=== PATIENT | male | born 1985 | race Caucasian/White ===

== ENCOUNTER 2019-06-05 23:17 | Inpatient (IN) | payer BC, SELFPAY ==
[2019-06-05 23:45] LABS: Hemoglobin 17.3 g/dL (14.0-18.0); Mean Corpuscular HGB CONC 33.5 g/dL (32.0-36.0); Mean Corpuscular Hemoglobin 33.7 pg (27.0-31.0); Mean Platelet Volume 8.2 fL (7.4-10.4); Platelet Count 343 thou/uL (130-400); RBC Distribution Width 13.5 % (11.5-14.5); Red Blood Cell (RBC) Count 5.12 mill/uL (4.70-6.10); White Blood Cell (WBC) Count 9.7 thou/uL (4.8-10.8)
[2019-06-05 23:56] LABS: ALT (SGPT) 843 U/L (8-55); AST (SGOT) 1174 U/L (5-34); Albumin 3.1 g/dL (3.5-5.0); Alkaline Phosphatase 409 U/L (40-150); Anion Gap 21 mmol/L (10-20); BUN (Urea Nitrogen) 27 mg/dL (8.9-20.6); Bilirubin, Total 2.5 mg/dL (0.2-1.2); Calc. Creatinine Clearance 0 mL/min (70-130); Carbon Dioxide 21 mmol/L (22-29); Chloride 94 mmol/L (98-107); Estimated GFR-MDRD 72; Globulin 3.2 g/dL (2.4-3.5); Glucose 61 mg/dL (70-105); Potassium 4.1 mmol/L (3.5-5.1); Protein, Total 6.3 g/dL (6.0-8.3); Sodium 132 mmol/L (136-145)
[2019-06-06 00:05] LABS: Calcium 12.6 mg/dL (7.8-10.44)
[2019-06-06 00:06] LABS: Band 6 % (5-11); Lymphocytes 9 % (21-51); MDiff Complete? YES; Monocytes 7 % (0-10); Neutrophil 76 % (42-75); Nucleated RBC 6 % (0); Reactive Lymphocytes 2 % (0-10)
[2019-06-06] MEDS ORDERED: Dextrose 50% Abboject 50 ML SYRINGE ONE (00:20)
[2019-06-06 00:27] LABS: Acetaminophen Less than 6.0 mcg/mL (10.0-30.0); Alcohol 18 mg/dL (Less than 10); Salicylate Less than 8.0 mg/dL (15.0-30.0)
[2019-06-06] MEDS ORDERED: Morphine 4 MG/ML VIAL ONE ×2 (00:31→02:50)
[2019-06-06 00:56] LABS: INR-International Normal Ratio 1.4; PTT 26.3 SEC (22.9-36.1); Prothrombin Time 16.7 SEC (12.0-14.7)
[2019-06-06 01:44] LABS: HBSAg Index 0.18 S/CO (0-0.99); Hep B Surf Ag Non-Reactive S/CO (NonReactive); Hep C IgG Ab Non-Reactive (NonReactive); Hep C Index 0.04 S/CO (0-0.79)
[2019-06-06 01:46] LABS: Hep A IgM AB Non-Reactive (NonReactive); Hep A IgM S/CO 0.11 S/CO (0-0.79)
[2019-06-06 01:47] LABS: HBCM Index 0.07 S/CO (0-0.79); Hepatitis B Core IgM Abs Non-Reactive (NonReactive)
[2019-06-06] MEDS ORDERED: Dextrose 50% Abboject 50 ML SYRINGE SLOW IVP PRN (04:19)
[2019-06-06] MEDS ORDERED: Dextrose 5% in Water 1,000 ML IV PRN (04:19)
[2019-06-06] MEDS ORDERED: Promethazine HCl 25 MG/ML VIAL IM PRN (04:19)
[2019-06-06] MEDS ORDERED: traMADol HCl 50 MG TAB PO PRN ×3 (04:23→22:57)
[2019-06-06] MEDS ORDERED: Sodium Chloride 0.9% 1,000 ML IV SCH (04:30)
[2019-06-06 05:38] VITALS: BMI 28.0
[2019-06-06] MEDS: Morphine 2 MG/ML SYRINGE SLOW IVP PRN ×5 (05:53→20:33)
[2019-06-06] MEDS: Dextrose 10% in Water 1,000 ML IV SCH ×2 (05:54→13:55)
[2019-06-06] MEDS: Ondansetron PF 4 MG/2 ML Vial IVP PRN ×2 (05:54→18:17)
--- NOTE | 2019-06-06 06:11 | HP ---
TRAUMA SURGEON: Dr. Hu. CONSULTING PHYSICIAN: Dr. Sweeney. HISTORY OF PRESENT ILLNESS: The patient is a 34-year-old male, who presented to the emergency department complaining of body aches for 7 weeks, sweats for 1 week, and right upper quadrant/epigastric abdominal pain as well as anorexia and fatigue. The patient was worked up by the emergency room physician and was found to have transaminitis, hypercalcemia, hepatomegaly, and enlarged liver with suspicion for possible metastasis. The patient also received a CT scan of the head, which demonstrated an acute right frontal subdural hematoma. The patient has no known history of trauma. He does report that he has been chair bound for almost a week. The patient has a history of leukemia and has been in remission for the past 10 years. Initially, Dr. Velasco tried to admit the patient to the Hospital Medicine Service, who reported that they felt it was more appropriate to admit the patient to Trauma due to the subdural hematoma. Upon my evaluation, the patient had received 2 L of normal saline as well as one amp of glucose for a blood glucose level of 61 on arrival. He was mildly tachycardic but hemodynamically stable. He was mildly diaphoretic and pale. He reported that he was feeling better after receiving care in the emergency department, but was still extremely fatigued. He does not recall any traumatic events. There are no signs of trauma on his body. He does have two small bumps on his scalp, which he reports are nontender. He does not remember when or how he got those bumps. The patient was admitted to the [facility] for close neurological assessment for his traumatic brain injury. He was started on D10 in the emergency department because his glucose dropped back down to 61 after one amp of D50 and meal. Subsequently, we will continue the glucose and watch his serum glucose levels very closely. REVIEW OF SYSTEMS: All 10-point review of systems negative except as indicated above. PAST MEDICAL HISTORY: Leukemia, in remission for 10 years. PAST SURGICAL HISTORY: Placement and removal of MediPort in the chest wall as well as a right knee surgery. 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 He reports chewing tobacco. He drinks alcohol very rarely. Reports a previous history of opioid abuse, when he was receiving treatment for chemotherapy. He also reports using THC, last use was about 3 to 4 days ago. MEDICATION: Effexor 300 mg daily. ALLERGIES: NO KNOWN DRUG ALLERGIES. PHYSICAL EXAMINATION: VITAL SIGNS: Temperature 98.0, pulse 105, respirations 18, oxygen saturation 96% on room air, and blood pressure 127/94. PRIMARY SURVEY: Airway intact. Adequate breath sounds bilaterally. 2+ pulses in the bilateral radials, femorals, and DPs. GCS is 15. Gross motor and sensation are intact. No lacerations, bruising, or external bleeding. SECONDARY SURVEY: HEAD: Normocephalic and atraumatic. No gross palpable skull deformities or tenderness. There are two small bumps on the top of his head, which are nontender with no signs of ecchymosis. EYES: Pupils 3 to 2, equal, round, reactive to light bilaterally. ENT: No hemotympanum. No epistaxis. No septal hematoma. Midface stable to manipulation. No blood in the oropharynx. Dentition is intact. C-SPINE: No step-offs, deformities, or tenderness. C-collar not in place. CHEST: Nontender. No crepitus. No abrasions or ecchymosis. Equal chest movement. ABDOMEN: Soft, mildly tender in the epigastric region, nondistended. His right upper quadrant is slightly more firm and is likely due to his hepatomegaly. PELVIS: Stable to manipulation. Nontender. No abrasions or ecchymosis. RECTAL: Deferred. GENITOURINARY: Deferred. EXTREMITIES: No gross palpable deformities. No abrasions or ecchymosis noted. 2+ pulses in bilateral radials, femorals, and DPs. He does have small petechiae on his upper extremities and the patient reports that are itchy. BACK/SPINE: No step-offs or deformities or tenderness to palpation of the thoracic and lumbar spine. No abrasions or ecchymosis noted. 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 Gross normal sensation x4 extremities. GCS is 15. LABORATORY FINDINGS: White count 9.7, hemoglobin 17.3, hematocrit 51.5, and platelets 343. INR 1.4. Sodium 134, potassium 4.1, chloride 94, carbon dioxide 21, BUN 27, creatinine 1.15, glucose 61, calcium 12.6, total bilirubin 2.5, AST 1174, ALT 843, and alkaline phosphatase is 409. Ammonia is 64, albumin is 3.1, and lipase is 110. Plasma alcohol is 18. Hepatitis panel is negative. DIAGNOSTIC FINDINGS: CT of the brain demonstrates acute right frontal subdural hemorrhage, right frontal soft tissue swelling/contusion. CT of the abdomen and pelvis demonstrate innumerable hypoechoic lesions throughout the liver density, probably metastasis. Recommend further evaluation with dedicated hepatic CT or MRI. Moderate hepatomegaly. Right hepatic lobe measuring 24.3 cm in sagittal dimension. Minimal gallbladder wall thickening, possibly secondary to cholecystitis and/or hepatic disease. Ultrasound of the abdomen demonstrated enlarged heterogeneous liver with nodular peripheral contour in combination with findings on comparison ultrasound. Leukemia infiltrates of the liver are considered most likely. ASSESSMENT: 1. Status post unknown head trauma. 2. Subdural hematoma. 3. Hepatomegaly with hypoechoic lesions throughout liver. 4. Hyponatremia and hypochloremia. 5. Hypercalcemia. 6. Hypoglycemia. 7. Transaminitis. 8. History of leukemia. PLAN: The patient will be admitted to the [facility] under the Trauma Surgery team. We will complete q.2-hour neuro checks and we will elevate the head of the bed 30 degrees. PT/OT to see the patient in the morning. Neurosurgery has been consulted, and Dr. Sweeney will evaluate the patient. He has received 2 L of normal saline in the emergency department. He also received one amp of D50 and ate a meal for his hypoglycemia. This caused his glucose to only go up minimally from 61 to 70 and then subsequently, it went back down to 61, so he was placed on D10 at 50 an hour in the emergency room. We will continue this with close glucose monitoring as well. We will repeat laboratory studies later today as well. We will discuss with Dr. Camp for consideration of consulting the Hospital Medicine team and/or Heme/Onc for further evaluation of the patient's hepatomegaly and lesions. There is some concern for gallbladder wall thickening and cholecystitis, the patient has very minimal symptoms. We will continue to monitor those as well, but there is no indication for intervention at this time. The patient was discussed with Dr. Hu before this dictation. Job ID: [id number]
[2019-06-06 06:16] LABS: Bilirubin Negative (Negative); Blood, Urine Negative (Negative); Clarity Clear (Clear); Glucose, Urine (Dipstick) Normal (Negative); Leukocyte Negative Leu/uL (Negative); Nitrite Negative (Negative); Protein, Urine (Dipstick) 20 mg/dL (Neg-Trace); Urobilinogen Normal mg/dL (Less than 2)
[2019-06-06 06:37] LABS: Amphetamine Not Detected (NotDetected); Barbiturates Screen Not Detected (NotDetected); Benzodiazepine Screen Not Detected (NotDetected); Cocaine Metabolite Screen Not Detected (NotDetected); Medtox Control Line Valid? VALID (VALID); Medtox Reader # READER 4; Methadone Not Detected (NotDetected); Methamphetamine Not Detected (NotDetected); Opiate Screen Detected (NotDetected); Oxycodone Screen Not Detected (NotDetected); Phencyclidine (PCP) Not Detected (NotDetected); THC/Cannabinoid Screen Detected (NotDetected); Tricyclic Screen Not Detected (NotDetected)
--- NOTE | 2019-06-06 07:57 | CT ---
PRELIMINARY REPORT/[facility]/EMERGENCY AFTER HOURS PROCEDURE Addendum created by Kyler Kemp MD on 06/06/2019 1:38 AM Central Time ([place] & [place]) THIS REPORT CONTAINS FINDINGS THAT MAY BE CRITICAL TO PATIENT CARE The findings were verbally communicated via telephone conference with ANGELIA SOUSA at 1:38 AM CDT on 06/06/2019. The findings were acknowledged and understood. Initial Report created on 06/06/2019 1:32 AM Central Time ([place] & [place]) EXAM: CT Head Without Contrast EXAM DATE/TIME: 06/06/2019 12:44 AM CLINICAL HISTORY: 34 years old, male; Pain; Headache; Patient HX: 34 y/o m, with h/o of leukemia x 10 yrs ago [place], presents to ED C/O a few weeks of worsening ostealgia. PT reports it has worsened such that he had an episode during which he was unable to move. Mother states she was prompted to bring PT to ED for eval on finding an unusual lump on his head, no recent trauma. TECHNIQUE: Imaging protocol: Computed tomography images of the head without contrast. COMPARISON: No relevant prior studies available. FINDINGS: Brain: Two right frontal extra-axial hyperdense collections, measuring 8 mm in thickness anteriorly a nd 6 mm posteriorly (series 2, image 23 and series 2, image 20, respectively), most compatible with a cute subdural hemorrhages. Ventricles: Normal. Bones/joints: Normal. Sinuses: Normal as visualized. Mastoid air cells: Normal as visualized. Soft tissues: Right frontal soft tissue swelling/contusion. IMPRESSION: 1. Acute right frontal subdural hemorrhages as described above. Recommend followup. 2. Right frontal soft tissue swelling/contusion. Thank you for allowing us to participate in the care of your patient. Dictated and Authenticated by: Kyler Kemp MD 06/06/2019 1:32 AM Central Time ([place] & [place]) FINAL REPORT CT BRAIN WITHOUT CONTRAST: I agree with the preliminary report given by Dr. Kyler Kemp of [facility]. CODE QA POS: [facility]
--- NOTE | 2019-06-06 08:11 | CT ---
PRELIMINARY REPORT/[facility]/EMERGENCY AFTER HOURS PROCEDURE EXAM: CT Abdomen and Pelvis With Contrast EXAM DATE/TIME: 06/06/2019 2:14 AM CLINICAL HISTORY: 34 years old, male; Abdominal pain; Acute; Patient HX: 34 y/o m, with h/o of leukemia x 10 yrs ago no w in remission, presents to ED C/O a few weeks of worsening ostealgia. PT reports it has worsened suc h that he had an episode during which he was unable to move. Mother states she was prompted to bring PT to ED for eval on finding an unusual lump on his head, no recent trauma. TECHNIQUE: Imaging protocol: Axial computed tomography images of the abdomen and pelvis with intravenous contras t. COMPARISON: US Abdomen 06/06/2019 1:13 AM FINDINGS: Liver: Enlarged, heterogeneous liver, with nodular peripheral contour. Gallbladder and bile ducts: Normal. Pancreas: Normal. Spleen: Normal. Adrenals: Normal. Kidneys and ureters: Normal. Stomach and bowel: Normal. Appendix: Appendix is normal. Intraperitoneal space: Small amount of perihepatic and pelvic free fluid, likely secondary to underlying hepatic process. Vasculature: Normal. No abdominal aortic aneurysm. Lymph nodes: Normal. No enlarged lymph nodes. Bladder: Unremarkable as visualized. Reproductive: Unremarkable as visualized. Bones/joints: No acute abnormality. Soft tissues: Normal. IMPRESSION: Enlarged, heterogeneous liver, with nodular peripheral contour. In combination with findings on dagmar rison ultrasound, leukemic infiltration of the liver is considered most likely. Thank you for allowing us to participate in the care of your patient. Dictated and Authenticated by: Kyler Kemp MD 06/06/2019 2:40 AM Central Time ([place] & [place]) FINAL REPORT CT ABDOMEN AND PELVIS WITH IV CONTRAST: I agree with the preliminary report given by Dr. Kyler Kemp of [facility]. CODE QA POS: [facility]
--- NOTE | 2019-06-06 08:14 | ULT ---
PRELIMINARY REPORT/[facility]/EMERGENCY AFTER HOURS PROCEDURE EXAM: US Abdomen Limited, Right Upper Quadrant EXAM DATE/TIME: 06/06/2019 1:13 AM CLINICAL HISTORY: 34 years old, male; Abdominal tenderness and bloating and nausea; Abdominal pain; Generalized; Patient HX: History of leukemia 10 years ago, treated with radiation, currently in remission TECHNIQUE: Imaging protocol: Real-time ultrasound of the abdomen with image documentation. Examination was focus ed on the right upper quadrant. COMPARISON: No relevant prior studies available. FINDINGS: Liver: Innumerable hypoechoic lesions throughout the liver diffusely, possibly metastases. Moderate h epatomegaly (right hepatic lobe measures 24.3 cm in sagittal dimension). Gallbladder: Gallbladder wall measures 5 mm in thickness. Small amount of gallbladder sludge. Sonographic Wiggins sign was reportedly negative. Common bile duct: Common bile duct measures 3 mm in diameter. Pancreas: Pancreas not visualized secondary to overlying bowel gas. Right kidney: Right kidney is normal in appearance and measures 11.0 cm in length. IMPRESSION: 1. Innumerable hypoechoic lesions throughout the liver diffusely, possibly metastases. Recommend fur ther evaluation with dedicated hepatic CT or MRI. 2. Moderate hepatomegaly (right hepatic lobe measures 24.3 cm in sagittal dimension). 3. Minimal gallbladder wall thickening, possibly secondary to cholecystitis and/or hepatic disease. Thank you for allowing us to participate in the care of your patient. Dictated and Authenticated by: Kyler Kemp MD 06/06/2019 2:11 AM Central Time ([place] & [place]) FINAL REPORT GALLBLADDER ULTRASOUND: I agree with the preliminary report given by Dr. Kyler Kemp of [facility]. CODE QA POS: [facility]
[2019-06-06] MEDS: Famotidine/PF 20 mg/2ml Vial SLOW IVP SCH ×2 (09:04→20:26)
[2019-06-06] MEDS: Polyethylene Glycol 3350 17 GM Packet PO SCH (09:05)
[2019-06-06] MEDS: Senokot S 8.6-50 MG TAB PO SCH ×2 (09:06→20:26)
--- NOTE | 2019-06-06 09:56 | PRG ---
DATE OF SERVICE: 06/06/2019 Mr. Magaña was admitted yesterday for constellation of concerns, one of which was a noted subdural hematoma with cerebral convexity. The subdural hematoma is small and does not exert any significant mass effect in order to produce any midline shift. The subdural is nonoperative in nature and will resolve with time. I discussed this with Mr. Magaña as well as family. I do not foresee a need for any additional imaging unless there is a change in his neurologic exam. Job ID: [id number]
[2019-06-06] MEDS ORDERED: ISOVUE-370 76%-LOCM 1 ML ONE (10:21)
--- NOTE | 2019-06-06 10:33 | CT ---
CT head without contrast: Multiple axial tomograms obtained through the head without IV enhancement. INDICATIONS: Follow-up subdural hematoma COMPARISON: CT scan head performed earlier today at 12:46 AM FINDINGS: Ventricles have normal size and position. 2 small foci of subdural hematoma in the right frontal lobe anteriorly are unchanged in size and appe arance when compared to exam earlier today. No mass effect. No parenchymal hemorrhage. Visualized sinuses and mastoids appear clear. Bony calvarium appears unremarkable. Small scalp hematoma superior right frontal region is unchanged. IMPRESSION: Small anterior right subdural hematomas are stable.
--- NOTE | 2019-06-06 13:43 | PRG ---
DATE OF SERVICE: 06/06/2019 Please see Ally Morejon Trauma PA's full H and P. SUBJECTIVE: Briefly, this is a 34-year-old male with chronic failure to thrive, who presents to the emergency room after a fall with a small subdural hematoma. He has been seen by Neurosurgery, who recommends no further treatment. He is not going to require any neurosurgical intervention. The patient has evidence of diffuse myelodysplastic disease. He is going to need full medical workup from the Medicine Service and Oncologic Service. Trauma will likely pass off to the Medical Service since his trauma injury is stable. Job ID: [id number]
[2019-06-06 14:18] LABS: Hemoglobin 16.6 g/dL (14.0-18.0); Mean Corpuscular Hemoglobin 33.2 pg (27.0-31.0); Mean Platelet Volume 8.2 fL (7.4-10.4); Platelet Count 311 thou/uL (130-400); RBC Distribution Width 14.3 % (11.5-14.5); Red Blood Cell (RBC) Count 5.01 mill/uL (4.70-6.10)
[2019-06-06 14:31] LABS: Phosphorus 3.6 mg/dL (2.3-4.7)
[2019-06-06 14:39] LABS: Band 12 % (5-11); Large Platelets SLIGHT; Lymphocytes 4 % (21-51); MDiff Complete? YES; Macrocytosis SLIGHT = 6-15 cells (100X) (0-5/hpf); Monocytes 16 % (0-10); Neutrophil 67 % (42-75); Nucleated RBC 3 % (0); Platelet Morphology Comment Appears Adequate; Polychromasia MODERATE = 3-4 cells (100X) (0-2/hpf); Reactive Lymphocytes 1 % (0-10); White Blood Cell (WBC) Count 11.1 thou/uL (4.8-10.8)
[2019-06-06 15:30] LABS: ALT (SGPT) 818 U/L (8-55); AST (SGOT) 1165 U/L (5-34); Albumin 2.9 g/dL (3.5-5.0); Alkaline Phosphatase 375 U/L (40-150); Anion Gap 23 mmol/L (10-20); BUN (Urea Nitrogen) 26 mg/dL (8.9-20.6); Bilirubin, Total 2.6 mg/dL (0.2-1.2); Calc. Creatinine Clearance 132 mL/min (70-130); Carbon Dioxide 16 mmol/L (22-29); Chloride 98 mmol/L (98-107); Estimated GFR-MDRD 81; Globulin 3.1 g/dL (2.4-3.5); Glucose 68 mg/dL (70-105); Potassium 4.3 mmol/L (3.5-5.1); Sodium 133 mmol/L (136-145)
[2019-06-06 15:36] LABS: Calcium 12.6 mg/dL (7.8-10.44)
--- NOTE | 2019-06-06 21:11 | PRG ---
DATE OF SERVICE: 06/06/2019 This is Dai Fox NP dictating a report for Shaka Jorge Camp DO. SUBJECTIVE: This is a 34-year-old gentleman, who presented to the emergency department complaining of body aches for 7 weeks, sweats for a week and right upper quadrant epigastric abdominal pain as well as anorexia and fatigue. The patient also was found to have an acute right frontal subdural hematoma. The patient has no known history of trauma and reports that he has been chair bound for almost a week. Neurosurgery did evaluate the patient and reports that this subdural is nonoperative in nature and will resolve with time. The patient is currently awake and alert and reports generalized weakness. The patient's mother is at bedside and is concerned as the patient previously had leukemia and received high doses of radiation for his leukemia in which he has been in remission for 10 years. The patient's treatment was at [facility] and he was also told that it is very likely that he would get some other sort of cancer within the next 10 years. The patient remains on a D10 infusion and has been placed on a regular diet. Blood sugars continue to be 68 to 78 currently. The patient denies any nausea or vomiting. OBJECTIVE: VITAL SIGNS: Temperature 97, pulse 114, respirations 20, blood pressure 122/88, SpO2 97% on room air. GENERAL: The patient is awake, alert, GCS 15, no acute distress. HEENT: Head is atraumatic and normocephalic, 2 small bumps on the top of the patient's head, which are nontender. Pupils are equal at 3 mm. CHEST: Equal chest movement, bilateral breath sounds clear, respirations nonlabored. ABDOMEN: Soft, mildly tender in the epigastric region. EXTREMITIES: Moves all extremities, positive distal pulses in all extremities. NEUROLOGIC: GCS 15, strength 5/5, normal sensation in all extremities. IMPRESSION: 1. Status post unknown head trauma. 2. Small subdural hematoma. 3. Hepatomegaly with lesions throughout the liver. 4. Hyponatremia and hypochloremia. 5. Hypercalcemia. 6. Hypoglycemia. 7. Transaminitis. 8. History of leukemia. PLAN: Continue to monitor patient in the IMCU. We will continue his D10 and regular meals. We will repeat labs tomorrow. The patient's small subdural hematoma is stable. Discussed consulting Hospital Medicine team and/or Oncology for further evaluation of patient's hepatomegaly and lesions with Dr. Camp. Job ID: [id number]
[2019-06-06] MEDS ORDERED: cloNIDine 0.1 MG TAB PO SCH (23:00)
[2019-06-06] MEDS: traMADol HCl 50 MG TAB PO SCH (23:37)
[2019-06-07] MEDS ORDERED: Venlafaxine HCl XR 150 MG CAP PO SCH ×3 (00:15→21:00)
[2019-06-07] MEDS: Morphine 4 MG/ML VIAL SLOW IVP PRN ×4 (00:54→21:06)
--- NOTE | 2019-06-07 03:28 | PRG ---
DATE OF SERVICE: 06/07/2019 SUBJECTIVE: Patient was seen this evening in the IMCU during rounds. Upon my evaluation, patient reported he is not feeling very well today, just generally having body aches and feeling fatigued. He was tearful while speaking with me. We did discuss that his CT of his brain was stable and he did not need any further acute intervention for his traumatic brain injury. He reported he understood and we discussed focusing on his acute metabolic and oncologic needs starting tomorrow. Patient also reported poor appetite and difficulty with pain management throughout the day. He did agree to drink more Ensure. OBJECTIVE: VITAL SIGNS: Patient is afebrile, hemodynamically stable. He continues to be tachycardic with heart rate into the 100s, one teens, and 120s. GENERAL: Ill-appearing young male, lying in bed with no signs of acute distress. PULMONARY: Equal chest rise and fall. No signs of acute respiratory distress. CARDIAC: Tachycardic but regular rhythm. No murmurs. ABDOMEN: Soft, nontender, and nondistended. EXTREMITIES: 2+ pulses in all extremities. No significant swelling noted. NEUROLOGIC: GCS is 15. Gross motor and sensation are intact. Pupils equal, round, and reactive to light bilaterally. ASSESSMENT: 1. Status post unknown trauma. 2. Subdural hematoma, stable. 3. Hepatomegaly with suspicion for metastatic lesions throughout liver. 4. Hyponatremia, slightly improved. Hypochloremia, resolved. 5. Hypercalcemia, stable. 6. Hypoglycemia, improved. 7. Transaminitis, stable. 8. History of leukemia. PLAN: Overnight, we will adjust the patient's pain regimen as he will receive tramadol 50 mg scheduled with an additional 50 as needed. He also received 4 mg IV morphine p.r.n. Patient is also started on clonidine 0.1 mg q.6 hours p.r.n. for pain control. Clonidine was ordered with hold parameters as well. Patient agreed to drink Ensure as well. Our goal is to address the patient's metabolic and intraabdominal neoplastic processes tomorrow. Job ID: [id number]
[2019-06-07] MEDS: Ondansetron PF 4 MG/2 ML Vial IVP PRN ×2 (05:11→21:05)
[2019-06-07] MEDS: cloNIDine 0.1 MG TAB PO SCH ×3 (05:12→17:15)
[2019-06-07] MEDS: traMADol HCl 50 MG TAB PO SCH ×3 (05:13→17:15)
[2019-06-07 05:26] LABS: ALT (SGPT) 823 U/L (8-55); AST (SGOT) 1172 U/L (5-34); Albumin 2.9 g/dL (3.5-5.0); Alkaline Phosphatase 332 U/L (40-150); Anion Gap 24 mmol/L (10-20); BUN (Urea Nitrogen) 25 mg/dL (8.9-20.6); Bilirubin, Total 2.3 mg/dL (0.2-1.2); Calc. Creatinine Clearance 121 mL/min (70-130); Carbon Dioxide 15 mmol/L (22-29); Chloride 95 mmol/L (98-107); Estimated GFR-MDRD 74; Glucose 88 mg/dL (70-105); Lipase 166 U/L (8-78); Phosphorus 4.1 mg/dL (2.3-4.7); Potassium 4.5 mmol/L (3.5-5.1); Protein, Total 5.9 g/dL (6.0-8.3); Sodium 129 mmol/L (136-145)
[2019-06-07 05:35] LABS: Calcium 13.1 mg/dL (7.8-10.44)
[2019-06-07 05:52] LABS: Band 14 % (5-11); Eosinophils 1 % (0-10); Hemoglobin 16.2 g/dL (14.0-18.0); Lymphocytes 13 % (21-51); MDiff Complete? YES; Mean Corpuscular HGB CONC 33.3 g/dL (32.0-36.0); Mean Corpuscular Hemoglobin 34.2 pg (27.0-31.0); Mean Platelet Volume 8.4 fL (7.4-10.4); Monocytes 12 % (0-10); Neutrophil 59 % (42-75); Nucleated RBC 2 % (0); Platelet Count 321 thou/uL (130-400); Red Blood Cell (RBC) Count 4.73 mill/uL (4.70-6.10); White Blood Cell (WBC) Count 11.7 thou/uL (4.8-10.8)
[2019-06-07] MEDS ORDERED: Sodium Chloride 0.9% (PF) 10 ML VIAL FS PRN (08:54)
[2019-06-07] MEDS ORDERED: Sodium Chloride 154 MEQ in Dextrose 10% in Water 1,000 ML IV SCH (09:00)
[2019-06-07] MEDS: Polyethylene Glycol 3350 17 GM Packet PO SCH (09:37)
[2019-06-07] MEDS: Senokot S 8.6-50 MG TAB PO SCH ×2 (09:37→21:01)
[2019-06-07] MEDS: Pantoprazole 40 MG VIAL IVP SCH (10:03)
--- NOTE | 2019-06-07 14:01 | PDOC.HOSPP ---
- Subjective Encounter Date: 06/07/19 Encounter Time: 13:59 Subjective: Care transferred from Trauma service. Record reviewed. Patient just received pain meds and is somnolent. His mother is at the beside. She helps with the history. 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 Had no evidence "in the blood" per his mother. Had treatment at [facility] that included "high dose CVAD" Was in remission and in generally good health until a few weeks ago. Started having pain in the right shoulder area. Progressed to right abdominal pain. Seemed to be worse with eating. Developed a lump on his head. Seen in the ED. Had subdural hematoma. No known traumatic injury. Admitted to trauma service. Eval'd by neurosurg. No surgery indicated. Had CT abdomen and pelvis with nodular liver. Labs with very elevated LFT's and coagulopathy. Has had some persistent hypoglycemia. - Objective Vital Signs & Weight: Vital Signs (12 hours) Temp Pulse Pulse BP BP BP Pulse Ox 06/07/19 13:15 139/97 H 06/07/19 10:44 98.0 F 06/07/19 09:03 118 H 126 H 139/107 H 133/99 H 06/07/19 09:00 118 H 119 H 139/107 H 135/99 H 06/07/19 07:48 95 06/07/19 07:14 97.9 F 06/07/19 05:12 141/94 H 06/07/19 03:12 97.0 F L Pulse Ox Pulse Ox 06/07/19 13:15 06/07/19 10:44 06/07/19 09:03 94 L 96 06/07/19 09:00 06/07/19 07:48 06/07/19 07:14 06/07/19 05:12 06/07/19 03:12 Weight Admit Weight 207 lb 3 oz Weight 207 lb 3 oz Most Recent Monitor Data Heart Rate from ECG 117 NIBP 126/101 NIBP BP-Mean 109 Respiration from ECG 33 SpO2 91 I&O: 06/06/19 06/07/19 06/08/19 06:59 06:59 06:59 Intake Total 25 3300 Output Total 500 1020 Balance -475 2280 Result Diagrams: 06/07/19 04:43 06/07/19 04:42 Additional Labs: Accuchecks 06/07/19 06/07/19 06/07/19 11:59 08:03 04:12 POC Glucose 90 86 96 06/07/19 06/06/19 06/06/19 00:02 20:05 18:16 POC Glucose 62 L 72 81 06/06/19 16:03 POC Glucose 73 ROS - Medication Medications: Active Medications Generic Name Dose Route Start Last Admin Trade Name Freq PRN Reason Stop Dose Admin Clonidine 0.1 mg 06/07/19 06:00 06/07/19 13:15 Catapres PO 0.1 mg Q6HR PANKAJ Administration Sodium Chloride 154 meq/ 1,038.5 mls @ 50 mls/hr 06/07/19 09:00 06/07/19 10: 15 Dextrose/Water IV 1,038.5 mls .[id number] PANKAJ Administration Morphine Sulfate 4 mg 06/06/19 22:59 06/07/19 07:22 Morphine SLOW IVP 4 mg Q4H PRN Administration Breakthrough Pain after PRNs Ondansetron HCl 4 mg 06/06/19 04:19 06/07/19 05:11 Zofran IVP 4 mg Q6H PRN Administration Nausea Pantoprazole Sodium 40 mg 06/07/19 09:00 06/07/19 10:03 Protonix IVP 40 mg DAILY PANKAJ Administration Polyethylene Glycol 17 gm 06/06/19 09:00 06/07/19 09:37 Miralax PO Not Given DAILY PANKAJ Senna/Docusate Sodium 2 tab 06/06/19 09:00 06/07/19 09:37 Senokot S PO Not Given BID PANKAJ Tramadol HCl 50 mg 06/06/19 22:57 06/07/19 10:07 Ultram PO 50 mg Q6H PRN Administration Moderate to Severe Pain (6-10) Tramadol HCl 50 mg 06/06/19 23:59 06/07/19 13:09 Ultram PO 50 mg Q6HR PANKAJ Administration - Exam General - other findings: Somnolent. Profusely diaphoretic. Generalized edema. Neck: supple, symmetric, no JVD Heart: RRR, no murmur, no gallops, no rubs, normal peripheral pulses Heart - other findings: Tachy Respiratory: CTAB, no wheezes, no rales, no ronchi, normal chest expansion, no tachypnea, normal percussion Gastrointestinal: soft, non-distended, normal bowel sounds Gastrointestinal - other findings: RUQ TTP and liver enlarged, palpable. Extremities: no cyanosis, no clubbing Extremeties - other findings: Mild diffuse edema. Neurological: CN's grossly intact Hosp A/P (1) Subdural hematoma Code(s): S06.5X9A - TRAUM SUBDR HEM W LOC OF UNSP DURATION, INIT Status: Acute (2) Hepatomegaly Code(s): R16.0 - HEPATOMEGALY, NOT ELSEWHERE CLASSIFIED Status: Acute (3) Coagulopathy Status: Acute (4) Abdominal pain Code(s): R10.9 - UNSPECIFIED ABDOMINAL PAIN Status: Acute (5) Hx of lymphoma Code(s): Z85.72 - PERSONAL HISTORY OF NON-HODGKIN LYMPHOMAS Status: Chronic - Plan Discussed with Onc. Will try to get him back to [facility]. Further diagnostic work up will be challenging. Called transfer center. Patient's doctor at [facility] was Victorino Sabillon. Check ammonia level. CXR. Increase IVF. Pain management.
[2019-06-07] MEDS ORDERED: Zoledronic Acid 4 MG in Sodium Chloride 0.9% 100 ML IVPB SCH (14:15)
--- NOTE | 2019-06-07 14:40 | RAD ---
RADIOGRAPH CHEST 1 VIEW: DATE: 06/07/2019 HISTORY: 34-year-old male with history of leukemia and chest pain. FINDINGS: Lungs are very hypoinflated. There are no airspace densities, pulmonary edema, pneumothorax, or cardi omegaly. The lateral costophrenic angles are sharp. IMPRESSION: No acute cardiopulmonary findings.
--- NOTE | 2019-06-07 16:05 | PRG ---
DATE OF SERVICE: 06/07/2019 SUBJECTIVE: Mr. Magaña is a 34-year-old man with previous history of leukemia, who presented to the emergency department with a 7-week history of malaise, body aches, anorexia, and fatigue. He also endorses night sweats over the last week and half. He has been quite immobile over the last several days. He has gained a fair amount of weight as a result according to the patient. He denies any hematochezia or melena. He does complain of epigastric to right upper quadrant abdominal pain. Part of his evaluation included a CT scan of the brain, which was remarkable for small right frontal convexity subdural hematoma. Repeat CT scan of the brain reveals stable subdural hematoma. He has remained neurologically stable. Janet Coma Scale this morning is noted at 15. OBJECTIVE: VITAL SIGNS: Include blood pressure 126/101, pulse is 117, respiratory rate 33, temperature 98 degrees Fahrenheit, and oxygen saturation 93% on room air. HEENT: Pupils are equal, round, and reactive to light and accommodation. HEART: Reveals regular rate with sinus tachycardia. No murmurs or gallops auscultated. LUNGS: Clear to auscultation bilaterally. Breathing, regular and nonlabored. ABDOMEN: Soft and obese, but nontender to palpation. Liver is palpable, two fingerbreadths below the right subcostal margin. The spleen is nonpalpable below costal margin. Clearly, the patient has no peritoneal signs on examination. NEUROLOGIC: Reveals no focal deficits present. LABORATORY FINDINGS: Today include a CBC with 11,700 white blood cells, hemoglobin and hematocrit 16.2 and 48.5 respectively. Platelet count 321,000. Differential counts as follows; 59 neutrophils, 14 bands, 13 lymphocytes, 12 monocytes, and 1 eosinophil. Metabolic profile; sodium 129, potassium 4.5, chloride is 95, BUN is 25, creatinine is 1.13, glucose is 88, total bilirubin is 2.3, serum calcium is 13.1, AST and ALT are 1172 and 823 respectively. Alkaline phosphatase is 332. Serum lipase is marginally elevated at 166. PTH level is low at 6.6. I have personally reviewed the CT scan of the abdomen and pelvis, which was obtained on 06/06/2019. This reveals hepatomegaly with multiple nodular lesions within the liver. Abdominal ultrasound was also obtained, which confirms the multiple nodular lesions within the liver. Gallbladder is devoid of stones, and there is no gallbladder wall thickening or pericholecystic fluid noted. Common bile duct is normal in diameter for this patient's age at 3 mm. IMPRESSIONS: 1. Subacute right frontal small subdural hematoma with no focal neurologic deficits. 2. Multiple nodular lesions of the liver in a patient with a previous history of leukemia. I suspect this is secondary to metastatic leukemia versus lymphoma. 3. Acute hypercalcemia, likely secondary to #2 above. 4. Acute hyponatremia. PLAN: 1. Free water restriction while monitoring serum sodium for normalization. 2. We will ask Interventional Radiology to obtain a percutaneous biopsy of the liver for diagnosis. 3. Consider Oncology consultation with regard to the liver lesions and history of leukemia. 4. Increase activity per Physical and Occupational Therapy. Above findings and plan discussed with the patient and his mother at bedside. They indicated understanding of the information given. I answered their questions. Job ID: [id number]
--- NOTE | 2019-06-07 17:06 | PDOC.EVN ---
Event Note - Event Note Event Note: Discussed with Dr. Blankenship (sp) at [facility]. He has accepted the patient as an urgent transfer to come first thing in the morning. Discussed with Oncology. Discussed with Dr. Camp. Will DC the order for the liver biopsy. Labs reveal hyperammonia. Will start xifaxan and lactulose.
[2019-06-07] MEDS ORDERED: Sodium Chloride 0.45% 1,000 ML IV SCH (19:30)
[2019-06-07 20:34] LABS: Actual Bicarbonate (HCO3a) 21.7 mEq/L (22-28); Base Excess (BEa) -1.1 mEq/L (-2.0 to +3.0); CO2 Tension 31.8 mmHg (35.0-45.0); Calcium, Ionized 1.49 mmol/L (1.12-1.30); Carboxyhemoglobin (COHb) 1.1 gm% (0.0-3.0); Hemoglobin (Hb) 17.2 g/dL (14.0-18.0); O2 Tension (PaO2) 70.5 mmHg (80.0-100.0); pH, Arterial 7.45 (7.35-7.45)
[2019-06-07 20:36] LABS: Puncture Site RRADIAL
[2019-06-07] MEDS: Rifaximin 550 MG TAB PO SCH (21:01)
--- NOTE | 2019-06-08 00:01 | PDOC.EVN ---
Event Note - Event Note Event Note: pt has continued to have sirs signs and symptoms, even after hydration, procalcitonin 1.0, in an immunocompromised host, will cover empirically, this can be reassessed and step down in abt's once infection ruled out, cultures ordered
[2019-06-08] MEDS: cloNIDine 0.1 MG TAB PO SCH ×3 (00:32→12:26)
[2019-06-08] MEDS: traMADol HCl 50 MG TAB PO SCH ×3 (00:32→12:27)
[2019-06-08 00:59] LABS: Lactic Acid 6.8 mmol/L (0.5-2.2)
[2019-06-08 01:00] LABS: Anion Gap 21 mmol/L (10-20); BUN (Urea Nitrogen) 30 mg/dL (8.9-20.6); Calc. Creatinine Clearance 110 mL/min (70-130); Carbon Dioxide 21 mmol/L (22-29); Chloride 93 mmol/L (98-107); Estimated GFR-MDRD 66; Glucose 100 mg/dL (70-105); Potassium 5.5 mmol/L (3.5-5.1); Sodium 129 mmol/L (136-145)
[2019-06-08 01:02] LABS: Calcium 12.1 mg/dL (7.8-10.44)
[2019-06-08] MEDS: Piperacillin/Tazobactam 4.5 GM in Sodium Chloride 0.9% 100 ML IVPB SCH ×2 (01:07→09:07)
[2019-06-08] MEDS ORDERED: Dextrose 5 % And 0.9 % NaCl 1,000 ML IV SCH ×2 (03:30→06:25)
[2019-06-08 05:25] LABS: INR-International Normal Ratio 1.6
[2019-06-08] MEDS ORDERED: Dexamethasone 4 MG in Sodium Chloride 0.9% 50 ML IVPB SCH (06:30)
[2019-06-08 07:48] LABS: Hemoglobin 15.6 g/dL (14.0-18.0); Mean Corpuscular Hemoglobin 33.4 pg (27.0-31.0); Mean Platelet Volume 8.6 fL (7.4-10.4); Platelet Count 251 thou/uL (130-400); RBC Distribution Width 14.1 % (11.5-14.5); Red Blood Cell (RBC) Count 4.65 mill/uL (4.70-6.10); White Blood Cell (WBC) Count 13.2 thou/uL (4.8-10.8)
[2019-06-08 08:06] LABS: Lactic Acid 3.9 mmol/L (0.5-2.2)
[2019-06-08 08:11] LABS: ALT (SGPT) 644 U/L (8-55); AST (SGOT) 871 U/L (5-34); Albumin 2.5 g/dL (3.5-5.0); Alkaline Phosphatase 285 U/L (40-150); Anion Gap 21 mmol/L (10-20); BUN (Urea Nitrogen) 38 mg/dL (8.9-20.6); Bilirubin, Total 2.7 mg/dL (0.2-1.2); Calc. Creatinine Clearance 89 mL/min (70-130); Calcium 10.9 mg/dL (7.8-10.44); Carbon Dioxide 17 mmol/L (22-29); Chloride 94 mmol/L (98-107); Estimated GFR-MDRD 52; Globulin 2.8 g/dL (2.4-3.5); Glucose 104 mg/dL (70-105); Potassium 4.9 mmol/L (3.5-5.1); Protein, Total 5.3 g/dL (6.0-8.3); Sodium 127 mmol/L (136-145)
[2019-06-08 08:25] LABS: Band 24 % (5-11); Lymphocytes 15 % (21-51); MDiff Complete? YES; Monocytes 7 % (0-10); Neutrophil 54 % (42-75); RBC Morphology Normal
[2019-06-08] MEDS ORDERED: Vancomycin HCl 1.5 GM in Sodium Chloride 0.9% 250 ML 300 ML IVPB SCH (09:00)
[2019-06-08] MEDS ORDERED: Vancomycin HCl 1 GM in Premix Bag 1 BAG IVPB SCH (09:00)
[2019-06-08] MEDS: Hydrocortisone Sod Succ/PF 100 mg/2 ml Vial IVP SCH ×2 (09:08→13:15)
[2019-06-08] MEDS: Pantoprazole 40 MG VIAL IVP SCH (09:09)
[2019-06-08] MEDS: Rifaximin 550 MG TAB PO SCH (09:12)
[2019-06-08] MEDS: Senokot S 8.6-50 MG TAB PO SCH (09:12)
[2019-06-08] MEDS: Polyethylene Glycol 3350 17 GM Packet PO SCH (09:13)
[2019-06-08 14:38] VITALS: BP 132/87
[2019-06-08 14:55] VITALS: TEMP 97.5
--- NOTE | 2019-06-09 08:08 | DIS ---
DATE OF ADMISSION: 06/06/2019 DATE OF DISCHARGE: 06/08/2019 TRANSFER OF CARE NOTE: PRIMARY CARE PROVIDER: Monie Damon NP. DISPOSITION: Transferred, 06/08/2019, to [facility], under the care of Dr. Morin. FINAL DIAGNOSES: Subdural hematoma, apparently spontaneous, hepatomegaly with apparent acute infiltration, coagulopathy acute, abdominal pain acute, history of non-Hodgkin lymphoma, hepatic encephalopathy, lactic acidosis, hypercalcemia, hypokalemia, elevated liver function tests. DISCHARGE MEDICATIONS: 1. Effexor 300 mg a day. 2. Vancomycin 1.5 g q.8 hours. 3. Zosyn 4.5 g q.8 hours. 4. Lactulose 30 g p.o. t.i.d. ALLERGIES: NO KNOWN DRUG ALLERGIES. PENDING AT THE TIME OF DISCHARGE: Blood cultures. DIET: As tolerated. CODE STATUS: Full. HOSPITAL COURSE: The patient admitted to the [facility] through [facility] Room to the Trauma service. The patient presented with body aches, sweats, abdominal pain. He was found to have multiple abnormalities. He had an acute right subdural hematoma. He had a history of leukemia versus lymphoma. Dr. Jitendra Sweeney was consulted for Neurosurgery. The CT of the brain was repeated, which showed no expansion. 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 The patient has been in remission. Abnormalities included an enlarged heterogeneous liver consistent with lymphoma infiltrates. His CBC demonstrated some bands. Blood cultures were apparently obtained, IV antibiotics started. He had a mild coagulation defect on 06/06/2019 of an INR 1.4 and on 06/08, 1.6. His chemistries, sodium 132, potassium 4.1, CO2 of 21, BUN 27, creatinine 1.15, calcium 12.6, bilirubin 2.5, AST 1174, ALT 843, alkaline phosphatase 409. The patient was treated with Zometa. His calcium came down to 10.9. With IV fluids, etc., his lactic acidosis has come down to 3.9. His bilirubin and transaminases are still quite high. On the previous day, 06/07/2019, [facility] was called for transfer and spoke to Dr. Morin, who accepted the patient, but there were no beds available at that time. Overnight, the patient became agitated, was found to have a very high ammonia, started on lactulose. He is now calm. I have spoken again to Dr. Morin today. They are accepting the patient in transfer. Transfer orders have been written. Transfer is in progress. Merely waiting for transport service just to show up to carry him to [facility]. He will be followed up at [facility]. Job ID: [id number]
== END 2019-06-08 16:10 | disposition short-term general hospital (02) | DRG 65 ==
LOC: ERS 23:17 → IMCU/EMU 06-06 05:26 → ONC 06-07 11:36 → IMCU/EMU 06-07 20:09
PROVIDERS: ADMIT Surgery; ATTEND Surgery
DX: I62.02 Nontraumatic subacute subdural hemorrhage (principal); E87.2 Acidosis; C95.91 Leukemia, unspecified, in remission; K72.90 Hepatic failure, unspecified without coma; E83.52 Hypercalcemia; E87.6 Hypokalemia; E16.2 Hypoglycemia, unspecified; E87.8 Other disorders of electrolyte and fluid balance, not elsewhere classified; Z85.72 Personal history of non-Hodgkin lymphomas
CPT/HCPCS: 36415; 36416; 70450; 71045; 74177; 76705; 80048; 80053; 80074; 80306; 80307; 81003; 82140; 82533; 82805; 83605; 83690; 83735; 83970; 84100; 84145; 85025; 85610; 85730; 87040; 87149; 93005; 94760; 96361; 96374; 96375; 96376; C9113; J1720; J2270; J2405; J2543; J3370; J3489; J3490; J7050; Q9966; S0028